=== PATIENT | female | born 1995 | race African-American/Black ===

== ENCOUNTER 2023-01-09 09:41 | Emergency (ER) | payer OTHER ==
[~2023-01-09] VITALS: Ht 154.9 cm; Wt 88.0 kg
[2023-01-09 10:00] VITALS: BP 147/90
[2023-01-09 10:16] VITALS: BP 121/79
[2023-01-09 10:30] VITALS: BP 124/77
[2023-01-09 10:45] VITALS: BP 119/79
[2023-01-09 11:00] VITALS: BP 125/81
[2023-01-09 11:15] VITALS: BP 129/82
== END 2023-01-09 11:20 | disposition home or self-care (01) ==
LOC: ED 09:41
DX: Z01.30 Encounter for examination of blood pressure without abnormal findings (principal)

== ENCOUNTER 2023-04-10 22:20 | Emergency (ER) | payer OTHER ==
[~2023-04-10] VITALS: Ht 154.9 cm; Wt 89.0 kg
[2023-04-10 23:46] LABS: BASO% 0.3 % (0-3); HEMATOCRIT 39.7 % (37.0-47.0); HEMOGLOBIN 13.2 g/dl (12.0-16.0); IMMATURE GRANULOCYTES 0.1 % (0.0-5.0); MEAN CORPUSCULAR HGB 29.3 pG CALC (26.0-32.0); MEAN CORPUSCULAR HGB CONC 33.2 g/dL CAL (32.0-36.0); MONO% 7.9 % (2-13); NEUT# 6.08 thou/uL (2.00-7.15); NEUT% 62.7 % (42-76); RED BLOOD COUNT 4.51 mill/uL (4.20-5.60); RED CELL DISTRI WIDTH 11.7 % (11.5-15.5)
[2023-04-11 00:01] LABS: ALBUMIN 4.3 g/dL (3.2-5.0); ALKALINE PHOSPHATASE 84 u/l (38-126); AMYLASE 105 u/l (30-110); ANION GAP 11 (6-22 (CALC)); BILIRUBIN, TOTAL 0.6 mg/dL (0.02-1.3); BUN 15 mg/dL (7-17); BUN/CREATININE RATIO 16 (12-20 (CALC)); CARBON DIOXIDE 25 mmol/l (22-30); CHLORIDE 105 mmol/l (95-108); CREATININE 0.9 mg/dL (0.5-1.0); GFR FOR AFR.AMER. > 60 ML/MIN (>=60 (CALC)); GFR OTHER RACES > 60 ML/MIN (>=60 (CALC)); LIPASE 58 u/l (23-300); POTASSIUM 3.6 mmol/l (3.5-5.1); SGOT/AST 40 u/l (14-36); SODIUM 138 mmol/l (137-146); TOTAL PROTEIN 7.6 g/dL (6.3-8.2)
[2023-04-11 00:32] LABS: URINE BLOOD DIPSTICK Large (NEGATIVE); URINE COLOR Yellow; URINE GLUCOSE - DIPSTICK Negative (NEGATIVE); URINE KETONE Trace mg/dL (NEGATIVE); URINE LEUK ESTERASE Moderate (NEGATIVE); URINE NITRITE - DIPSTICK Positive (Negative); URINE PH 5.5 (4.5-8.0); URINE PROTEIN - DIPSTICK 100 mg/dL (NEG-TRACE); URINE SPECIFIC GRAVITY 1.025; URINE UROBILINOGEN - DIPSTICK 0.2 E.U./dL (0.2)
[2023-04-11 00:37] LABS: URINE BILIRUBIN - DIPSTICK Negative (NEGATIVE)
[2023-04-11 00:38] LABS: URINE EPITHELIAL CELLS MODERATE EPI/hpf (0-FEW); URINE RBC >100 RBC/hpf (0-5); URINE WBC >100 WBC/hpf (0-5)
[2023-04-11 00:39] LABS: URINE BACTERIA MODERATE hpf
[2023-04-11] MEDS ORDERED: KEFLEX500 MG PO (03:27)
[2023-04-11] MEDS ORDERED: PYRIDIUM200 MG PO (03:27)
[2023-04-11 03:31] VITALS: BP 130/76
== END 2023-04-11 03:45 | disposition home or self-care (01) ==
LOC: ED 22:20
PROVIDERS: Emergency Medicine
DX: N39.0 Urinary tract infection, site not specified (principal); B96.20 Unspecified Escherichia coli [E. coli] as the cause of diseases classified elsewhere; Z20.822 Contact with and (suspected) exposure to COVID-19
CPT/HCPCS: Q9967